=== PATIENT | female | born 1950 | race Caucasian/White ===

== ENCOUNTER 2017-08-30 18:53 | Emergency (ER) | payer OTHER ==
[~2017-08-30] VITALS: Ht 157.5 cm; Wt 70.4 kg
[2017-08-30 21:33] VITALS: BP 146/88
== END 2017-08-30 21:34 | disposition home or self-care (01) ==
LOC: EME 18:53 → TRA 18:53
DX: M54.9 Dorsalgia, unspecified (principal); M25.512 Pain in left shoulder; S40.212A Abrasion of left shoulder, initial encounter; V49.40XA Driver injured in collision with unspecified motor vehicles in traffic accident, initial encounter; Y92.410 Unspecified street and highway as the place of occurrence of the external cause
CPT/HCPCS: 71045; 99281; 99284